=== PATIENT | female | born 1985 | race African-American/Black ===

== ENCOUNTER 2020-05-15 19:55 | Outpatient (CLI) | payer BC ==
[2020-05-15 21:19] VITALS: BP 177/97; PULSE 98; RESP 16; TEMP 96.8
[2020-05-15 21:19] LABS: Appearance,Urine Clear (Clear); Bilirubin,Urine Negative (Negative); Blood,Urine Negative (Negative); Color,Urine Yellow; Glucose,Urine (UA) 1+ (Negative); Ketones,Urine Negative (Negative); Leukocyte Esterase,Urine Negative (Negative); Nitrite,Urine Negative (Negative); PH, Urine 5.5 (5.0-8.0); Protein,Urine Trace (Negative); Specific Gravity,Urine 1.022 (1.001-1.035); Urobilinogen,Urine <2.0 mg/dL (<2.0)
--- NOTE | 2020-06-06 07:44 | P.MSEPDOC ---
Presenting Problems - Arrival Data Date of Arrival on Unit: 05/15/20 Time of Arrival on Unit: 20:01 Mode of Transport: Ambulatory - Complaint OB-Reason for Admission/Chief Complaint: Decreased Movement Comment: Discharge and decreased movement since 1829 tonight Medical History - Information : 4 Para: 1 Term: 1 : 0 Abortions: Spontaneous or Elective: 2 Number of Living Children: 1 - Gestational Age Gestational Age by JAMILA (wks/days): 39 Weeks and 4 Days Review of Systems - Review of Systems Constitutional: No problems Breast: No problems ENT: No problems Cardiovascular: No problems Respiratory: No problems Gastrointestinal: No problems Genitourinary: No problems Musculoskeletal: No problems Neurological: No problems Skin: No problems Vital Signs - Temperature Temperature: 96.8 F Temperature Source: Temporal Artery Scan - Pulse Right Brachial Pulse Rate: 98 Pulse Assessment Method: Automatic Cuff - Respirations Respiratory Rate: 16 Oxygen Delivery Method: Room Air O2 Sat by Pulse Oximetry: 100 - Blood Pressure Right Arm Blood Pressure: 177/97 Blood Pressure Mean: 123 Blood Pressure Source: Automatic Cuff Medical Screen Scoring (Pre) - Cervical Exam Dilation: Exam Deferred Effacement: Exam Deferred Membranes: Intact - Uterine Contractions Frequency: N/A Duration: N/A Intensity: N/A - Maternal Vital Signs Maternal Temperature: N/A Maternal Blood Pressure: N/A Signs of Preeclampsia: N/A Maternal Respirations: N/A - Maternal Trauma Maternal Trauma: N/A - Assessment - Baby A Baseline FHR: 145 Heart Rate - NICHD Category: Category I (Normal) = 0 NST: Reactive - Total Score - Baby A Total Score - Baby A: 0 - Total Score - Baby B Total Score - Baby B: 0 - Total Score - Baby C Total Score - Baby C: 0 - Level of Risk - Baby A Level of Risk - Baby A: Low (0-5) - Level of Risk - Baby B Level of Risk - Baby B: Low (0-5) - Level of Risk - Baby C Level of Risk - Baby C: Low (0-5) Physician Notification (Pre) - Physician Notified Physician Notified Date: 05/15/20 Physician Notified Time: 20:37 New Order Received: Yes - Notification Comment Comment: Reported bps 177/97, 142/91, 128/76. Orders to obtain more bp and send UA. Reported negative amnisure. Physician Notification (Post) - Physician Notified Physician Notified Date: 05/15/20 Physician Notified Time: 21:27 Physician/Practitioner Notified:: Ketty New Order Received: Yes - Notification Comment Comment: Reported UA and bps (110/76, 116/78) to Dr. Hdez, orders to send home and follow up with Dr. Alcaraz as scheduled. Disposition - Disposition OB Disposition: Discharge to home, Written follow up instructions reviewed Discharge Date: 05/15/20 Discharge Time: 21:30 I agree with the RN Medical Screening Exam: Yes Risk & Benefit of care provided described in d/c instruction: Yes Diagnosis: decreased movement
== END 2020-05-15 21:30 | disposition home or self-care (01) ==
LOC: FBPOP 19:55
PROVIDERS: ATTEND Obstetrics & Gynecology
DX: O36.8130 Decreased fetal movements, third trimester, not applicable or unspecified (principal); Z3A.39 39 weeks gestation of pregnancy
CPT/HCPCS: 59025; 81003; 84112; 99213

== ENCOUNTER 2020-05-23 13:45 | Emergency (ER) | payer BC ==
[2020-05-23] MEDS ORDERED: ACETAMINOPHEN TAB 500 MG TAB PO STA (14:23)
[2020-05-23] MEDS ORDERED: SODIUM CHLORIDE 0.9% 1,000 ML IV STA (14:23)
--- NOTE | 2020-05-23 14:32 | ED ---
General Adult HPI <Avery Vega - Last Filed: 05/23/20 19:51> - General Source: patient Mode of arrival: ambulatory Limitations: no limitations <Shadia Benson - Last Filed: 05/23/20 22:41> - General Chief complaint: Back Pain/Injury Stated complaint: Neck/Back Pain Time Seen by Provider: 05/23/20 14:07 - History of Present Illness Initial comments: Patient is a 34-year-old female, with recent vaginal delivery, presenting to the emergency department complaining of right-sided neck pain and headache x 1 day. Patient had a normal vaginal delivery 1 week ago, no complications. MATERIAL CLERK is Dr. Alcaraz. She states she did have an epidural. Patient states she has been recovering well and noticed right-sided neck pain starting yesterday. She states that it has been getting worse throughout the night and into today so she wanted to be seen. She denies any injuries or trauma, previous surgeries to her neck. She describes the pain is mostly on the right side of her neck extending into her right shoulder. She denies any previous right shoulder injuries. She states that yesterday she had a fever of 102. Patient states she took some ibuprofen approximately 3 hours prior to arrival today. She states the vaginal bleeding has been decreasing. She denies any abdominal pain, nausea, vomiting. She states she is currently breast-feeding. She denies any breast pain, dysuria, increase in frequency or urination. She's been having regular bowel movements. She states that she takes no medications other than vitamins. She has no further complaints at this time. Upon arrival to the ER, her vital signs are stable, afebrile. (Shadia Benson) - Related Data Home Medications Medication Instructions Recorded Confirmed Pnv No.95/Ferrous Fum/Folic AC 1 tab PO ONCE 05/15/20 05/23/20 [ Multivitamin Tablet] Ibuprofen [Advil] 600 mg PO ONCE PRN 05/23/20 05/23/20 Previous Rx's Medication Instructions Recorded Labetalol [Trandate] 100 mg PO BID 14 Days #28 tab 05/23/20 Allergies Allergy/AdvReac Type Severity Reaction Status Date / Time No Known Allergies Allergy Verified 05/23/20 16:34 Review of Systems ROS Other: All systems not noted in ROS Statement are negative. <Avery Vega - Last Filed: 05/23/20 19:51> ROS Other: All systems not noted in ROS Statement are negative. <Shadia Benson - Last Filed: 05/23/20 22:41> ROS Statement: Those systems with pertinent positive or pertinent negative responses have been documented in the HPI. Past Medical History Past Medical History: No Reported History History of Any Multi-Drug Resistant Organisms: None Reported Past Surgical History: No Surgical Hx Reported Past Anesthesia/Blood Transfusion Reactions: No Reported Reaction Past Psychological History: No Psychological Hx Reported Smoking Status: Never smoker Past Alcohol Use History: None Reported Past Drug Use History: None Reported - Past Family History Father History Unknown: Yes Family Medical History: Hypertension <Shadia Benson - Last Filed: 05/23/20 22:41> General Exam Limitations: no limitations <Shadia Benson - Last Filed: 05/23/20 22:41> - General Exam Comments Initial Comments: GENERAL: Patient is well-developed and well-nourished. Patient is nontoxic and in no acute distress. HEAD: Atraumatic, normocephalic. EYES: Pupils equal round and reactive to light, extraocular movements intact, sclera anicteric, conjunctiva are normal. Eyelids were unremarkable. ENT: TMs normal, nares patent, oropharynx clear without exudates. Moist mucous membranes. NECK: Patient has mild pain with palpation of the right cervical paraspinals, patient does have full cervical range of motion although increased pain with right lateral rotation and lateral flexion. Supple without lymphadenopathy or JVD. LUNGS: Unlabored respirations. Breath sounds clear to auscultation bilaterally and equal. No wheezes rales or rhonchi. HEART: Regular rate and rhythm without murmurs, rubs or gallops. ABDOMEN: Soft, nontender, normoactive bowel sounds. No guarding, no rebound. No masses appreciated. : Deferred MUSCULOSKELETAL: Normal extremities with adequate strength and normal range of motion, no pitting or edema. No clubbing or cyanosis. NEUROLOGICAL: Patient is alert and oriented x 3. Motor and sensory are also intact. Cranial nerves II through XII grossly intact. Normal speech, normal gait. PSYCH: Normal mood, normal affect. SKIN: Warm, Dry, normal turgor, no rashes or lesions noted. (Shadia Benson) Course <Avery Vega - Last Filed: 05/23/20 19:51> Vital Signs 05/23/20 05/23/20 05/23/20 13:51 17:09 17:30 Temperature 99.5 F 98.5 F Pulse Rate 74 84 Respiratory 20 18 Rate Blood Pressure 144/97 140/98 133/90 O2 Sat by Pulse 100 99 Oximetry 05/23/20 05/23/20 05/23/20 17:45 18:00 18:30 Temperature Pulse Rate Respiratory Rate Blood Pressure 152/97 136/90 137/89 O2 Sat by Pulse Oximetry 05/23/20 05/23/20 05/23/20 19:00 20:15 21:30 Temperature Pulse Rate 71 Respiratory 18 Rate Blood Pressure 136/87 158/85 156/109 O2 Sat by Pulse 97 Oximetry - Reevaluation(s) Reevaluation #1: 05/23/20 19:51 Patient was earlier evaluated by myself, Dr. Vega. Patient does have some discomfort with flexion of her neck however states is more in the right side. Patient has borderline fever. Patient states she had a fever of 102 yesterday. No other source for fever. Patient is made aware that meningitis cannot be ruled out without lumbar puncture and would like to have this procedure done. There was difficulty finding tray resulting in delay of procedure being done. Procedure was done without complications. Case was also earlier discussed with Dr. Caruso, covering for Dr. Ngo. She did review his blood pressures that were somewhat similar as well as current labs and does not feel patient has preeclampsia. She does recommend labetalol 100 twice a day and follow-up within the week. (Avery Vega) Procedures - Lumbar Puncture Consent Obtained: verbal consent Indication for Procedure: fever work up Patient Position: sitting upright/leaning forward Skin Prep: Povidone-Iodine 1% Local Anesthetic Used: Lidocaine 1% Spinal Needle Gauge: 22G Spinal Needle Length: 3in Interspace Used: L4-L5 Fluid Initially Obtained: clear Complications: none Patient Tolerated Procedure: well, no complications <Avery Vega - Last Filed: 05/23/20 19:51> Medical Decision Making - Lab Data Result diagrams: 05/23/20 15:32 05/23/20 15:32 <Avery Vega - Last Filed: 05/23/20 19:51> - Lab Data Result diagrams: 05/23/20 15:32 05/23/20 15:32 <Shadia Benson - Last Filed: 05/23/20 22:41> - Medical Decision Making Patient is a 34-year-old female here with right-sided neck pain x 1 day. She is 1 week status post vaginal delivery, no complications. MATERIAL CLERK is Dr. Alcaraz. Patient's blood pressure 144/97, afebrile. Patient did have some mild tenderness with palpation of the right cervical paraspinals. Lab work showed no acute abnormalities, urine did showed a very mild amount of WBCs, no bacteria. Patient was given Tylenol, fluids. We did discuss these findings with the patient, concern for meningitis was low but we did discuss the pros and cons of an LP and patient did request an LP. CSF showed no abnormalities, Gram stain revealed no organisms at this time. Case was discussed with on-call MATERIAL CLERK, Dr. Stephenson. She did recommend labetalol secondary to increase in blood pressure and headache. Patient will be started on labetalol 100 mg twice a day and will follow up with MATERIAL CLERK as well as her PCP. Patient is stable for discharge at this time. Patient may continue with Tylenol and/or Motrin for discomfort. Patient is in agreement with this plan of care. Return parameters were discussed with the patient and she verbalized understanding. Case discussed in detail with Dr. Vega who is in agreement with this plan of care. (Shadia Benson) - Lab Data Lab Results 05/23/20 05/23/20 05/23/20 Range/Units 15:32 15:32 15:32 WBC 4.8 (3.8-10.6) k/uL RBC 3.97 (3.80-5.40) m/uL Hgb 11.2 L (11.4-16.0) gm/dL Hct 34.5 (34.0-46.0) % MCV 86.9 (80.0-100.0) fL MCH 28.3 (25.0-35.0) pg MCHC 32.6 (31.0-37.0) g/dL RDW 14.0 (11.5-15.5) % Plt Count 318 (150-450) k/uL Neutrophils % 58 % Lymphocytes % 33 % Monocytes % 6 % Eosinophils % 1 % Basophils % 0 % Neutrophils # 2.8 (1.3-7.7) k/uL Lymphocytes # 1.6 (1.0-4.8) k/uL Monocytes # 0.3 (0-1.0) k/uL Eosinophils # 0.1 (0-0.7) k/uL Basophils # 0.0 (0-0.2) k/uL Sodium 136 L (137-145) mmol/L Potassium 4.5 (3.5-5.1) mmol/L Chloride 110 H (98-107) mmol/L Carbon Dioxide 21 L (22-30) mmol/L Anion Gap 5 mmol/L BUN 14 (7-17) mg/dL Creatinine 0.53 (0.52-1.04) mg/dL Est GFR (CKD-EPI)AfAm >90 (>60 ml/min/1.73 sqM) Est GFR (CKD-EPI)NonAf >90 (>60 ml/min/1.73 sqM) Glucose 56 L (74-99) mg/dL Calcium 9.3 (8.4-10.2) mg/dL Total Bilirubin 0.4 (0.2-1.3) mg/dL AST 30 (14-36) U/L ALT 27 (4-34) U/L Alkaline Phosphatase 165 H (38-126) U/L Total Protein 6.2 L (6.3-8.2) g/dL Albumin 3.6 (3.5-5.0) g/dL Urine Color Yellow Urine Appearance Clear (Clear) Urine pH 6.5 (5.0-8.0) Ur Specific [place] 1.029 (1.001-1.035) Urine Protein Trace H (Negative) Urine Glucose (UA) Negative (Negative) Urine Ketones Negative (Negative) Urine Blood Moderate H (Negative) Urine Nitrite Negative (Negative) Urine Bilirubin Negative (Negative) Urine Urobilinogen <2.0 (<2.0) mg/dL Ur Leukocyte Esterase Moderate H (Negative) Urine RBC 4 (0-5) /hpf Urine WBC 12 H (0-5) /hpf Ur Squamous Epith Cells 2 (0-4) /hpf Urine Mucus Moderate H (None) /hpf CSF Tube Number CSF Volume CSF Appearance CSF Color CSF RBC (0-10) u/L CSF Tot Nucleated Cells (0-5) u/L CSF Crenated Cells % CSF Fresh RBCs % CSF Glucose (40-70) mg/dL CSF Total Protein (12-60) mg/dL 05/23/20 Range/Units 19:57 WBC (3.8-10.6) k/uL RBC (3.80-5.40) m/uL Hgb (11.4-16.0) gm/dL Hct (34.0-46.0) % MCV (80.0-100.0) fL MCH (25.0-35.0) pg MCHC (31.0-37.0) g/dL RDW (11.5-15.5) % Plt Count (150-450) k/uL Neutrophils % % Lymphocytes % % Monocytes % % Eosinophils % % Basophils % % Neutrophils # (1.3-7.7) k/uL Lymphocytes # (1.0-4.8) k/uL Monocytes # (0-1.0) k/uL Eosinophils # (0-0.7) k/uL Basophils # (0-0.2) k/uL Sodium (137-145) mmol/L Potassium (3.5-5.1) mmol/L Chloride (98-107) mmol/L Carbon Dioxide (22-30) mmol/L Anion Gap mmol/L BUN (7-17) mg/dL Creatinine (0.52-1.04) mg/dL Est GFR (CKD-EPI)AfAm (>60 ml/min/1.73 sqM) Est GFR (CKD-EPI)NonAf (>60 ml/min/1.73 sqM) Glucose (74-99) mg/dL Calcium (8.4-10.2) mg/dL Total Bilirubin (0.2-1.3) mg/dL AST (14-36) U/L ALT (4-34) U/L Alkaline Phosphatase (38-126) U/L Total Protein (6.3-8.2) g/dL Albumin (3.5-5.0) g/dL Urine Color Urine Appearance (Clear) Urine pH (5.0-8.0) Ur Specific [place] (1.001-1.035) Urine Protein (Negative) Urine Glucose (UA) (Negative) Urine Ketones (Negative) Urine Blood (Negative) Urine Nitrite (Negative) Urine Bilirubin (Negative) Urine Urobilinogen (<2.0) mg/dL Ur Leukocyte Esterase (Negative) Urine RBC (0-5) /hpf Urine WBC (0-5) /hpf Ur Squamous Epith Cells (0-4) /hpf Urine Mucus (None) /hpf CSF Tube Number 4 CSF Volume 1.9 CSF Appearance Clear CSF Color Colorless CSF RBC 12 H (0-10) u/L CSF Tot Nucleated Cells 0 (0-5) u/L CSF Crenated Cells 0 % CSF Fresh RBCs 100 % CSF Glucose 56 (40-70) mg/dL CSF Total Protein 22 (12-60) mg/dL Disposition <Avery Vega - Last Filed: 05/23/20 19:51> Is patient prescribed a controlled substance at d/c from ED?: No <Shadia Benson - Last Filed: 05/23/20 22:41> Clinical Impression: Hypertension, Cervical muscle strain, Status post vaginal delivery Disposition: HOME SELF-CARE Condition: Stable Instructions (If sedation given, give patient instructions): Cervical Strain (ED) Additional Instructions: Please return to the Emergency Department if symptoms worsen or any other concerns. Please take labetalol twice a day as prescribed. May take Tylenol and/or Motrin for neck discomfort. Follow-up with MATERIAL CLERK in one week and PCP within 1-3 days. Prescriptions: Labetalol [Trandate] 100 mg PO BID 14 Days #28 tab Referrals: None,Stated [Primary Care Provider] - 1-2 days Charity Alcaraz, [Doctor of Osteopathic Medicine] - 1-2 days
[2020-05-23 15:44] LABS: Basophils % (A) 0 %; Eosinophils # (A) 0.1 k/uL (0-0.7); Eosinophils % (A) 1 %; HCT 34.5 % (34.0-46.0); HGB 11.2 gm/dL (11.4-16.0); Lymphocytes # (A) 1.6 k/uL (1.0-4.8); Lymphocytes % (A) 33 %; MCH 28.3 pg (25.0-35.0); MCHC 32.6 g/dL (31.0-37.0); MCV 86.9 fL (80.0-100.0); Mean Platelet Volume 7.6; Monocytes # (A) 0.3 k/uL (0-1.0); Monocytes % (A) 6 %; Neutrophils # (A) 2.8 k/uL (1.3-7.7); Neutrophils % (A) 58 %; Platelet Count 318 k/uL (150-450); RBC 3.97 m/uL (3.80-5.40); WBC 4.8 k/uL (3.8-10.6)
[2020-05-23 15:59] LABS: ALT 27 U/L (4-34); AST 30 U/L (14-36); African American GFR (CKD) >90 (>60 ml/min/1.73 sqM); Albumin 3.6 g/dL (3.5-5.0); Alkaline Phosphatase 165 U/L (38-126); Anion Gap 5 mmol/L; Blood Urea Nitrogen 14 mg/dL (7-17); Calcium 9.3 mg/dL (8.4-10.2); Carbon Dioxide 21 mmol/L (22-30); Chloride 110 mmol/L (98-107); Glucose 56 mg/dL (74-99); Non-African American GFR(CKD) >90 (>60 ml/min/1.73 sqM); Sodium 136 mmol/L (137-145); Total Bilirubin 0.4 mg/dL (0.2-1.3); Total Protein 6.2 g/dL (6.3-8.2)
[2020-05-23 16:00] LABS: Potassium 4.5 mmol/L (3.5-5.1)
[2020-05-23 16:04] LABS: Appearance,Urine Clear (Clear); Bilirubin,Urine Negative (Negative); Blood,Urine Moderate (Negative); Color,Urine Yellow; Glucose,Urine (UA) Negative (Negative); Ketones,Urine Negative (Negative); Leukocyte Esterase,Urine Moderate (Negative); Mucus,Urine Moderate /hpf; Nitrite,Urine Negative (Negative); PH, Urine 6.5 (5.0-8.0); Protein,Urine Trace (Negative); RBC,Urine 4 /hpf (0-5); Specific Gravity,Urine 1.029 (1.001-1.035); Squamous Epithelial Cell,Urine 2 /hpf (0-4); Urobilinogen,Urine <2.0 mg/dL (<2.0); WBC,Urine 12 /hpf (0-5)
--- NOTE | 2020-05-23 17:07 | XR ---
EXAMINATION TYPE: XR chest 2V DATE OF EXAM: 05/23/2020 COMPARISON: NONE HISTORY: Neck pain back pain TECHNIQUE: FINDINGS: Heart and mediastinum are normal. Lungs are clear. Diaphragm is normal. Bony thorax appears normal. IMPRESSION: Normal chest.
[2020-05-23] MEDS ORDERED: LABETALOL 5 MG/ML VIAL MDV IVP STA (17:08)
[2020-05-23 17:10] VITALS: RESP 18; TEMP 98.5
[2020-05-23 20:26] LABS: Appearance,CSF Clear; CSF Tube Number 4; CSF Tube Volume 1.9; Nucleated Cells, CSF 0 u/L (0-5)
[2020-05-23 20:27] LABS: Glucose,CSF 56 mg/dL (40-70); Red Blood Cell, CSF Crenated 0 %; Red Blood Cell, CSF Fresh 100 %; Red Blood Cell,CSF 12 u/L (0-10); Total Protein,CSF 22 mg/dL (12-60)
[2020-05-23] MEDS ORDERED: IBUPROFEN 600 MG TAB PO STA (21:07)
[2020-05-23 22:05] VITALS: BP 156/109; PULSE 71
== END 2020-05-23 22:08 | disposition home or self-care (01) ==
LOC: EC 13:45
DX: S16.1XXA Strain of muscle, fascia and tendon at neck level, initial encounter (principal); I10 Essential (primary) hypertension; Z39.2 Encounter for routine postpartum follow-up
CPT/HCPCS: 36415; 62270; 71046; 80053; 81001; 82945; 84157; 85025; 86592; 87070; 87086; 87205; 89050; 96361; 96374; 99283